=== PATIENT | male | born 1970 | race Caucasian/White ===

== ENCOUNTER 2017-07-31 23:30 | Emergency (ER) | payer BC ==
[2017-07-31] MEDS ORDERED: Diphtheria,Pertussis(Acell),Tetanus Vaccine 0.5 ML Syringe IM ONE (23:42)
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
[2017-08-01 00:28] LABS: CHLORIDE,CL 104 mEq/L (98-106); SODIUM,NA 140 mEq/L (136-145)
== END 2017-08-01 02:00 ==
LOC: CC.ED 23:30
DX: S02.119A Unspecified fracture of occiput, initial encounter for closed fracture (principal); S06.4X9A Epidural hemorrhage with loss of consciousness of unspecified duration, initial encounter; S60.512A Abrasion of left hand, initial encounter; S30.0XXA Contusion of lower back and pelvis, initial encounter; S50.312A Abrasion of left elbow, initial encounter; F10.10 Alcohol abuse, uncomplicated; R41.82 Altered mental status, unspecified; Z23 Encounter for immunization; X58.XXXA Exposure to other specified factors, initial encounter
CPT/HCPCS: 36415; 70450; 71260; 72125; 73130-LT; 74177; 80053; 85025; 85610; 90471; 90715; 99285; G0480; Q9967